=== PATIENT | female | born 1995 | race Caucasian/White ===

== ENCOUNTER → 2024-08-02 14:14 | Outpatient (REF) | payer BC, SELFPAY | LOC: HWRAD 14:14 | PROVIDERS: ATTENDING PHYSICIAN Orthopaedic Surgery; FAMILY PHYSICIAN Nurse Practitioner | DX: S82.852A Displaced trimalleolar fracture of left lower leg, initial encounter for closed fracture (principal) | CPT/HCPCS: 73700 ==